=== PATIENT | male | born 1995 | race Two or more races ===

== ENCOUNTER 2024-03-31 22:52 | Emergency (ER) | payer MEDICAID, OTHER ==
[~2024-03-31] VITALS: Ht 180.3 cm; Wt 90.7 kg
[2024-03-31 23:32] LABS: BASOPHILS # (AUTO) 0.1 K/uL (0.0-0.2); BASOPHILS % (AUTO) 0.6 % (0.0-2.0); EOSINOPHILS # (AUTO) 0.3 K/uL (0.0-0.7); EOSINOPHILS % (AUTO) 2.2 % (0.0-6.0); HEMATOCRIT 45 % (39-51); HEMOGLOBIN 14.8 g/dL (13.5-17.5); LYMPHOCYTES # (AUTO) 1.6 K/uL (0.8-4.8); LYMPHOCYTES % (AUTO) 13.8 % (20.0-44.0); MEAN CORPUSCULAR HEMOGLOBIN 28 PG (26.0-33.0); MEAN CORPUSCULAR HGB CONC 33 g/dl (31.0-36.0); MEAN CORPUSCULAR VOLUME 86 fL (80-96); MONOCYTES # (AUTO) 0.6 K/uL (0.1-1.30); MONOCYTES % (AUTO) 4.8 % (2.0-12.0); NEUTROPHILS # (AUTO) 9.1 K/uL (1.8-8.9); NEUTROPHILS % (AUTO) 78.6 % (43.0-81.0); PLATELET COUNT (AUTO) 221 K/uL (150-450); RED BLOOD CELL COUNT(AUTO) 5.28 MIL/uL (4.5-6.0); RED CELL DISTRIBUTION WIDTH 13.1 % (11.5-15.0); WHITE BLOOD COUNT (AUTO) 11.6 K/uL (4.3-11.0)
[2024-03-31 23:54] LABS: CALCIUM, SERUM 8.9 mg/dL (8.5-10.1); CARBON DIOXIDE 30 mmol/L (21-32); CHLORIDE 105 mmol/L (98-107); CREATININE 1.2 mg/dL (0.6-1.3); GLUCOSE 106 mg/dL (74-106); SODIUM SERUM 146 mmol/L (136-145); UREA NITROGEN, BLOOD 15 mg/dL (7-18)
[2024-04-01 00:07] LABS: ALANINE AMINOTRANSFERASE 105 U/L (12-78); ALBUMIN 3.6 g/dL (3.4-5.0); ALCOHOL, BLOOD < 3 mg/dL (0-10); ALKALINE PHOSPHATASE 65 U/L (46-116); ASPARTATE AMINOTRANSFERASE 73 U/L (15-37); BILIRUBIN,TOTAL 0.2 mg/dL (0.2-1.0); NT-PRO BNP 97 pg/mL (0-125); TOTAL PROTEIN, SERUM 7.8 g/dL (6.4-8.2)
[2024-04-01 00:15] LABS: APPEARANCE,URINE CLEAR (CLEAR); BILIRUBIN,URINE NEGATIVE (NEGATIVE); BLOOD, URINE NEGATIVE Ery/uL (NEGATIVE); COLOR,URINE YELLOW (YELLOW); KETONES,URINE NEGATIVE (NEGATIVE); LEUKOCYTE ESTERASE ,URINE NEGATIVE (NEGATIVE); NITRITE, URINE NEGATIVE (NEGATIVE); PROTEIN,URINE TRACE mg/dl (NEGATIVE); UGLUCOSE 1+ mg/dL (NEGATIVE); UROBILINOGEN,URINE 0.2 EU/dL (0.2)
[2024-04-01 00:15] LABS: ACETAMINOPHEN <10 ug/ml (10-30); SALICYLATE 1.6 mg/dL (2.8-20.0)
[2024-04-01 00:25] LABS: AMPHETAMINE, URINE POSITIVE (NEGATIVE); BARBITURATE, URINE NEGATIVE (NEGATIVE); BENZODIAZEPINE, URINE NEGATIVE (NEGATIVE); CANNABINOID, URINE NEGATIVE (NEGATIVE); OPIATE, URINE NEGATIVE (NEGATIVE); PHENCYCLIDINE SCREEN,URINE NEGATIVE (NEGATIVE)
[2024-04-01 00:26] LABS: COCCAINE, URINE POSITIVE (NEGATIVE)
[2024-04-01 00:32] LABS: ADD URINE CULTURE NO; BACTERIA,URINE Few /HPF (None Seen); FINE GRANULAR CASTS,URINE Few /LPF (None Seen); MUCUS,URINE Few /LPF (None Seen)
[2024-04-01] MEDS ORDERED: AZIT250T PO (01:18)
[2024-04-01 01:22] VITALS: BP 139/80; TEMP 98; O2SAT 99
== END 2024-04-01 01:23 | disposition home or self-care (01) ==
LOC: ER 22:53
DX: F11.10 Opioid abuse, uncomplicated (principal); R00.0 Tachycardia, unspecified; Z59.00 Homelessness unspecified
CPT/HCPCS: 36415; 71045-TC; 80053-TC; 81001; 83880; 84484-TC; 85025-TC; 98960; G0480